=== PATIENT | male | born 1935 | race Caucasian/White ===

== ENCOUNTER 2021-11-20 19:36 | Emergency (ER) | payer OTHER, MEDICARE, SELFPAY ==
--- NOTE | 2021-11-20 19:55 | CTR_ITS ---
PROCEDURE INFORMATION: Exam: CT Head Without Contrast Exam date and time: 11/20/2021 8:04 PM Age: 85 years old Clinical indication: Altered mental status/memory loss; Additional info: AMS TECHNIQUE: Imaging protocol: Computed tomography of the head without contrast. Radiation optimization: All CT scans at this facility use at least one of these dose optimization techniques: automated exposure control; mA and/or kV adjustment per patient size (includes targeted exams where dose is matched to clinical indication); or iterative reconstruction. COMPARISON: No relevant prior studies available. RADIATION DOSE METRICS: Total DLP (mGy-cm): 1056.98 FINDINGS: Brain: No hemorrhage. No edema. Moderate diffuse cerebral atrophy and sequela of chronic small vessel ischemic disease. No mass effect. Cerebral ventricles: No ventriculomegaly. Paranasal sinuses: Visualized sinuses are unremarkable. No fluid levels. Mastoid air cells: Visualized mastoid air cells are well aerated. Bones/joints: Unremarkable. No acute fracture. Soft tissues: Unremarkable. CT/CT head wo con* [id number] IMPRESSION: 1. No acute intracranial abnormality. 2. Moderate diffuse cerebral atrophy and sequela of chronic small vessel ischemic disease.
--- NOTE | 2021-11-20 19:55 | ECG_ITS ---
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 Measurements Intervals [place] Rate: 119 P: [place]: QRS: -40 QRSD: 113 T: 106 QT: 333 QTc: 469 Interpretive Statements ATRIAL FIBRILLATION WITH RAPID VENTRICULAR RESPONSE LEFT AXIS DEVIATION [QRS AXIS < -30] POSSIBLE RIGHT VENTRICULAR CONDUCTION DELAY [RSR (QR) IN V1/V2] MODERATE VOLTAGE CRITERIA FOR LVH, CONSIDER NORMAL VARIANT [MEETS CRITERIA IN ONE OF: R(aVL), S(V1), R(V5), R(V5/V6)+S(V1)] POSSIBLE SEPTAL MYOCARDIAL INFARCTION , OF INDETERMINATE AGE [30 ms Q WAVE IN V1/V2] PROBABLE LATERAL MYOCARDIAL INFARCTION , OF INDETERMINATE AGE [35 ms Q WAVE IN I/aVL/V5/V6] ST DEPRESSION, CONSIDER SUBENDOCARDIAL INJURY [0.1+ mV ST DEPRESSION] No previous ECG available for comparison Electronically Signed On 11-22-2021 23:41:26 CDT by Marv Sanz M.D. [id number]
--- NOTE | 2021-11-20 19:55 | XRR_ITS ---
PROCEDURE INFORMATION: Exam: XR Chest Exam date and time: 11/20/2021 8:33 PM Age: 85 years old Clinical indication: Other: AMS TECHNIQUE: Imaging protocol: Radiologic exam of the chest. Views: 1 view. COMPARISON: No relevant prior studies available. FINDINGS: Tubes, catheters and devices: Loop recorder device noted in the left chest wall. Lungs: Biapical scarring. No consolidation. Pleural spaces: No pleural effusion. No pneumothorax. Heart/Mediastinum: No cardiomegaly. Bones/joints: Visualized osseous structures are intact. XR/XR chest 1V portable [id number] IMPRESSION: No acute findings.
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
[2021-11-20 20:15] LABS: Amphetamines Screen Urine Negative (Negative); Barbiturates Screen Urine Negative (Negative); Benzodiazepines Screen Urine Positive (Negative); Cocaine Screen Urine Negative (Negative); Opiate Screen Urine Negative (Negative); PCP Screen Urine Negative (Negative); THC Screen Urine Positive (Negative)
[2021-11-20 20:19] LABS: Add Urine Microscopic? YES; Bilirubin Urine Neg (Negative); Blood Urine 2+ (Negative); Glucose Urine UA Norm (Normal); Ketones Urine 1+ (Negative); Leukocyte Esterase Urine Negative (Negative); Nitrate Urine Negative (Negative); Protein Urine Trace (Negative); Specific Gravity, Urine 1.015 (1.005-1.030); Urine Appearance Clear (CLEAR); Urine Color Yellow (Yellow); Urobilinogen Urine Norm (Negative); pH Urine 7 (5-7)
[2021-11-20 20:33] LABS: Alveolar-Arterial Oxygen Gradi 1.9 mmHg (5-10); Arterial Blood Gas Hematocrit 37.5 % (42-52); Base Excess ABG -1.2 mmol/L (-2.0-2.0); Blood Gas Allen Test Pos; Blood Gas Sample Site Radial, left; Blood Gas Sample Type Arterial; HCO3 ABG 18.7 mmol/L (22-26); HGB O2 Sat 97.3 % (95-100); Ionized Calcium Level - ABG 1.2 mmol/L (1.1-1.4); Methemoglobin 0.6 % (0.4-1.5); Potassium Level - ABG 3.7 mmol/L (3.5-5.0); Total Hemoglobin 12.2 g/dL (14-18)
[2021-11-20 20:37] LABS: ABG PCO2 19.7 mmHg (35-45); ABG PH Result 7.59 (7.35-7.45)
[2021-11-20 20:37] LABS: Add Urine Culture? No; Bacteria Urine TRACE /hpf; Mucus Urine 1+ /hpf; RBC Urine 0-4 /hpf (0-2); Squamous Epithelial Cell Urine 0-4 /hpf (0-5); WBC Urine 0-4 /hpf (0-5)
[2021-11-20 20:49] LABS: Basophils % 0.3 %; Eosinophils % 0.2 %; Hematocrit 38.4 % (42.0-52.0); Hemoglobin 11.8 g/dL (11.7-16.6); Lymphocytes % 10.7 %; Mean Corpuscular HGB Conc 30.7 g/dL (30.0-36.0); Mean Corpuscular Hemoglobin 27.2 pg (28.0-34.0); Mean Corpuscular Volume 88.5 fl (80-94); Mean Platelet Volume 11.8 fL (7.4-10.4); Monocytes # 0.6 10^3/uL (0.2-0.9); Monocytes % 6.5 %; Neutrophils # 7.95 10^3/uL (1.8-7.7); Neutrophils % 81.8 %; Nucleated Red Blood Cells % 0 %; Platelet Count 203 10^3/cmm (130-400); Red Blood Count 4.34 10^6/uL (4.1-5.3); Red Cell Distribution Width 13.8 % (12.1-15.1); White Blood Count 9.7 10^3/uL (4.0-10.0)
[2021-11-20] MEDS: OLANZapine 5 mg TABLET 2.5 MG PO (20:52)
[2021-11-20 21:08] LABS: Ammonia 34 umol/L (16-60)
[2021-11-20 21:14] LABS: Troponin(5th) Baseline 42 ng/L (0-15)
[2021-11-20 21:21] LABS: Alanine Aminotransferase 31 U/L (0-41); Albumin Level 4.2 g/dL (3.5-5.2); Alkaline Phosphatase 68 IU/L (40-130); Anion Gap 22.6 (5-19); Aspartate Amino Transferase 39 U/L (0-40); Blood Urea Nitrogen 16 mg/dL (8-23); Calcium 9.2 mg/dL (8.5-10.5); Carbon Dioxide 19 mmol/L (22-29); Chloride 101 mmol/L (98-107); Free T4 Free Thyroxine 1.31 ng/dL (0.82-1.77); Globulin 2.9 g/dL (1.3-4.6); Glucose 92 mg/dL (65-115); Lipase 43 U/L (13-60); Osmolality Calculated 289 mOsm/kg (285-295); Potassium 3.6 mmol/L (3.5-5.1); Sodium 139 mmol/L (136-145); Thyroid Stimulating Hormone 2.64 uIU/mL (0.27-4.20); Total Bilirubin 0.9 mg/dL (0.15-1.2); Total Protein 7.1 g/dL (6.6-8.7)
[2021-11-20 21:30] LABS: Acetaminophen < 5.0 ug/mL (10-30); Salicylate < 0.3 mg/dL (3-10)
[2021-11-20 21:44] LABS: SARS Covid-2 Antigen Negative (Negative)
--- NOTE | 2021-11-20 21:55 | ECG_ITS ---
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 Measurements Intervals [place] Rate: 154 P: -87 [place]: 90 QRS: -26 QRSD: 111 T: 102 QT: 304 QTc: 488 Interpretive Statements ATRIAL FIBRILLATION WITH RVR INCOMPLETE RIGHT BUNDLE BRANCH BLOCK [90+ ms QRS DURATION, TERMINAL R IN V1/V2, 40+ ms S IN I/aVL/V4/V5/V6] LEFT VENTRICULAR HYPERTROPHY AND ST-T CHANGE [VOLTAGE CRITERIA PLUS ST/T ABNORMALITY] POSSIBLE ANTEROLATERAL MYOCARDIAL INFARCTION , OF INDETERMINATE AGE [30 ms Q WAVE IN I/aVL/V3-V6] Compared to ECG 11/20/2021 20:18:23 Incomplete right bundle-branch block now present Left-axis deviation no longer present ST (T wave) deviation still present Myocardial infarct finding still present Electronically Signed On 11-22-2021 23:44:43 CDT by Marv Sanz M.D. [id number]
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
[2021-11-21] MEDS: ziprasidone 20 mg/mL SDV IM (00:15)
[2021-11-21] MEDS: midazolam 1 mg/mL INJ 2 mL 2 MG IM (01:06)
[2021-11-21 01:50] VITALS: BP 131/101; PULSE 160; RESP 15; O2SAT 98
[2021-11-21 01:52] VITALS: BP 131/101; PULSE 142; RESP 16; O2SAT 98
[2021-11-21] MEDS: metoprolol tartrate 1 mg/1 mL SDV 5 mL 5 MG IVP (01:56)
[2021-11-21 03:27] VITALS: PULSE 106; RESP 16
[2021-11-21 08:00] VITALS: BP 136/99; PULSE 106; RESP 16; TEMP 36.7; O2SAT 98
[2021-11-21] MEDS: metoprolol tartrate 25 mg Tablet PO ×2 (08:52→21:04)
[2021-11-21] MEDS: aspirin 81 mg EC Tablet PO (08:52)
[2021-11-21] MEDS: apixaban 5 mg Tablet PO ×2 (08:52→21:04)
--- NOTE | 2021-11-21 09:17 | PC.PHAR ---
PTS VERIFIED PTS MEDICATIONS-PTS STATES THE PT HASNT BEEN TAKING DEPAKOTE DR 250MG,MEMANTINE 5MG AND DONEPEZIL 5MG FOR A WHILE STATES THEY WERE DCED-PTS STATES THE PT HAS A RX FOR PLAVIX 75MG DAILY FILLED ON 11/11/21 BUT STATES PT HASNT STARTED TAKING YET STATES THE PT WAS TOLD TO FINISH THE XARELTO FIRST-PTS STATES PT WAS ON REMERON 7.5MG THEN WAS INCREASED TO 15MG STATES IT WAS TOO MUCH FOR THE PT SO SHE TITRATED IT DOWN AND DCED-EXT MED HISTORY SHOWS LAST FILLED 11/05/21 90D/S-NOTES ARE MADE IN THE PHARMACY COMMENTS
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
[2021-11-21] MEDS: OLANZapine 5 mg TABLET PO ×2 (10:23→17:11)
[2021-11-21 11:09] LABS: Troponin T (5th) Once 82 ng/L (0-15)
[2021-11-21 12:00] VITALS: BP 126/74; PULSE 84; TEMP 36.3
--- NOTE | 2021-11-21 12:41 | USCV_ITS ---
Diego Hsieh Age: 85 Gender: M : 1935 Exam Date: 11/21/2021 14:04 Ordering Phys: Facundo John MD Technologist: Dimitry Zhou Exam Location: [facility] [place] Indication: nstemi BP: 124 / 74 HR: 81 Rhythm: Sinus Technical Quality: Adequate MEASUREMENTS (Male / Female) Normal Values 2D ECHO LV Diastolic Diameter PLAX 4.3 cm 4.2 - 5.9 / 3.9 - 5.3 cm LV Systolic Diameter PLAX 3.5 cm IVS Diastolic Thickness 1.2 cm 0.6 - 1.0 / 0.6 - 0.9 cm IVS Systolic Thickness 1.3 cm LVPW Diastolic Thickness 1.2 cm 0.6 - 1.0 / 0.6 - 0.9 cm LVPW Systolic Thickness 1.4 cm LVOT Diameter 1.9 cm LV Ejection Fraction 2D Teich 41.1 % LV Ejection Fraction MOD 2C 57.4 % LV Ejection Fraction 2C AL 57.3 % LA Diameter 3.6 cm Aorta at Sinotubular Diameter 2.9 cm IVC Diameter 1.0 cm M-MODE Aortic Annulus Diameter 3.2 cm LA Ao Ratio MM 1.1 MV E Point Septal Separation 1.5 cm DOPPLER AV Peak Velocity 165.0 cm/s LVOT Peak Velocity 94.0 cm/s AV Area Cont Eq vti 1.8 cm squared AV Area Cont Eq pk 1.7 cm squared MV Area PHT 5.0 cm squared Mitral E to A Ratio 0.6 MV E' Velocity 27.0 cm/s Mitral E to MV E' Ratio 8.5 Mitral E to LV E' Lateral Ratio 9.6 Mitral E to LV E' Septal Ratio 7.7 TR Peak Velocity 187.7 cm/s TR Peak Gradient 14.1 mmHg Right Atrial Pressure 3.0 mmHg Pulmonary Artery Systolic Pressu 17.1 mmHg PV Peak Velocity 72.0 cm/s FINDINGS Left Ventricle Normal left ventricular size. LV systolic function is mildly reduced with EF of 40-45%. Mild global hypokinesis. Grade 1 diastolic dysfunction Right Ventricle The right ventricle is normal in size and function. Right Atrium The right atrium is normal in size. Left Atrium The left atrium is normal in size. Mitral Valve Moderate mitral annular calcification without significant stenosis or prolapse. There is trace mitral regurgitation. Aortic Valve Aortic valve is thickened without significant stenosis. There is no aortic regurgitation. Tricuspid Valve Structurally normal tricuspid valve without significant stenosis. Trace tricuspid regurgitation. Pulmonary artery systolic pressure is normal. Pulmonic Valve Not well visualized Pericardium Normal pericardium without effusion. Aorta Normal ascending aorta dimension. IVC CONCLUSIONS LV systolic function is mildly reduced with EF of 40-45% Grade 1 diastolic dysfunction Moderate mitral annular calcification. Trace mitral regurgitation Trace tricpuspid regurgitation No comparison studies are available Marv Sanz MD (Electronically Signed) Final Date: 22 November 2021 12:48 S
--- NOTE | 2021-11-21 12:42 | ECG_ITS ---
[facility] Test Date: 2021-11-21 Pat Name: Diego Hsieh Department: Room: Gender: Male Planner: : 1935 Requested By: Facundo John Order Number: [id number] Yasmin MD: Marv Sanz M.D. Measurements Intervals [place] Rate: 77 P: 22 NH: 157 QRS: -19 QRSD: 110 T: 243 QT: 440 QTc: 499 Interpretive Statements SINUS RHYTHM INCOMPLETE RIGHT BUNDLE BRANCH BLOCK [90+ ms QRS DURATION, TERMINAL R IN V1/V2, 40+ ms S IN I/aVL/V4/V5/V6] LEFT VENTRICULAR HYPERTROPHY AND ST-T CHANGE [VOLTAGE CRITERIA PLUS ST/T ABNORMALITY] POSSIBLE SEPTAL MYOCARDIAL INFARCTION , PROBABLY OLD [30 ms Q WAVE IN V1/V2] POSSIBLE LATERAL MYOCARDIAL INFARCTION , OF INDETERMINATE AGE [30 ms Q WAVE IN I/aVL/V5/V6] Compared to ECG 11/21/2021 01:42:55 No significant changes Electronically Signed On 11-22-2021 23:38:54 CDT by Marv Sanz M.D. [id number]
[2021-11-21 17:17] VITALS: O2SAT 93
--- NOTE | 2021-11-21 17:17 | PC.NURSE ---
Patient pacing in room and resting throughout shift, family visited earlier in shift for awhile, talked on phone with hospitalist. Patients VSS with regards to patient oxygen saturation low. Did random check and was in low 80's was easily corrected with oxygen placement. Patient confused but following commands and alert. Room remains clean and cleared of all hazards per protocol. Sitter at bedside, no other new events.
--- NOTE | 2021-11-21 18:42 | ECG_ITS ---
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 Measurements Intervals [place] Rate: 124 P: [place]: QRS: -9 QRSD: 114 T: 109 QT: 345 QTc: 496 Interpretive Statements ATRIAL FIBRILLATION WITH RAPID VENTRICULAR RESPONSE INCOMPLETE RIGHT BUNDLE BRANCH BLOCK [90+ ms QRS DURATION, TERMINAL R IN V1/V2, 40+ ms S IN I/aVL/V4/V5/V6] POSSIBLE LEFT VENTRICULAR HYPERTROPHY [VOLTAGE CRITERIA PLUS LAE OR QRS WIDENING] POSSIBLE SEPTAL MYOCARDIAL INFARCTION , OF INDETERMINATE AGE [30 ms Q WAVE IN V1/V2] MODERATE T-WAVE ABNORMALITY, CONSIDER LATERAL ISCHEMIA [-0.1+ mV T-WAVE IN I/aVL/V5/V6] Compared to ECG 11/21/2021 12:47:52 T-wave abnormality now present Possible ischemia now present Sinus rhythm no longer present ST (T wave) deviation no longer present Myocardial infarct finding still present Electronically Signed On 11-22-2021 23:43:46 CDT by Marv Sanz M.D. [email or web address]
--- NOTE | 2021-11-21 19:29 | PC.NURSE ---
EKG done at 1925 and shown to ER doctor
[2021-11-21] MEDS: ALPRAZolam 0.5 mg Tablet PO (21:04)
[2021-11-22] MEDS: acetaminophen 325 mg Tablet 650 MG PO (01:51)
[2021-11-22 05:40] LABS: Basophils % 0.6 %; Eosinophils # 0.1 10^3/uL (0.0-0.8); Hematocrit 35.9 % (42.0-52.0); Hemoglobin 12.1 g/dL (11.7-16.6); Lymphocytes # 1.8 10^3/uL (0.8-4.8); Lymphocytes % 25.4 %; Mean Corpuscular HGB Conc 33.7 g/dL (30.0-36.0); Mean Corpuscular Hemoglobin 27.7 pg (28.0-34.0); Mean Corpuscular Volume 82.2 fl (80-94); Mean Platelet Volume 11.7 fL (7.4-10.4); Monocytes # 0.8 10^3/uL (0.2-0.9); Monocytes % 11.9 %; Neutrophils # 4.29 10^3/uL (1.8-7.7); Neutrophils % 60.8 %; Nucleated Red Blood Cells % 0 %; Platelet Count 212 10^3/cmm (130-400); Red Blood Count 4.37 10^6/uL (4.1-5.3); White Blood Count 7.1 10^3/uL (4.0-10.0)
[2021-11-22 06:00] LABS: Alanine Aminotransferase 36 U/L (0-41); Albumin Level 4.2 g/dL (3.5-5.2); Alkaline Phosphatase 61 IU/L (40-130); Anion Gap 16.2 (5-19); Aspartate Amino Transferase 60 U/L (0-40); Blood Urea Nitrogen 18 mg/dL (8-23); Calcium 9.1 mg/dL (8.5-10.5); Carbon Dioxide 22 mmol/L (22-29); Chloride 103 mmol/L (98-107); Globulin 2.6 g/dL (1.3-4.6); Glucose 82 mg/dL (65-115); Osmolality Calculated 287 mOsm/kg (285-295); Potassium 3.2 mmol/L (3.5-5.1); Sodium 138 mmol/L (136-145); Total Protein 6.8 g/dL (6.6-8.7); Troponin T (5th) Once 73 ng/L (0-15)
[2021-11-22 06:14] VITALS: BP 139/82; PULSE 75; RESP 16; O2SAT 95
[2021-11-22] MEDS: aspirin 81 mg EC Tablet PO (09:29)
[2021-11-22] MEDS: OLANZapine 5 mg TABLET PO ×2 (09:29→20:24)
[2021-11-22] MEDS: ascorbic acid 500 mg Tablet 1000 MG PO (09:29)
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
[2021-11-22 11:47] VITALS: BP 121/61; PULSE 103; RESP 17; TEMP 36.4; O2SAT 96
--- NOTE | 2021-11-22 18:40 | PC.NURSE ---
Talat Bales from [facility]: Dr. Clemens is ordering medications for this patient. Zyprexa, Xanax, and Fentanyl patches, for his to picker packer from the pharmacy in the morning. Once she picks up the Rx, she will notify [facility], who will then notify the ER and he will be discharged home in her care. Dr. John and Dr. Banks notified and both agree with this plan.
[2021-11-22 19:05] VITALS: BP 109/60; PULSE 106; RESP 18; TEMP 36.3; O2SAT 98
[2021-11-22 20:00] VITALS: BP 116/66; PULSE 57; TEMP 36.7; O2SAT 97
[2021-11-22] MEDS: acetaminophen 500 mg Tablet PO (20:24)
[2021-11-22] MEDS: ALPRAZolam 0.5 mg Tablet PO (20:26)
[2021-11-22] MEDS: apixaban 5 mg Tablet PO (21:26)
[2021-11-23] VITALS: RESP 18
[2021-11-23 04:00] VITALS: BP 125/86; PULSE 91; RESP 17; TEMP 36.6; O2SAT 95
[2021-11-23] MEDS: acetaminophen 325 mg Tablet 650 MG PO (04:16)
[2021-11-23 05:58] VITALS: BP 151/78; PULSE 96; RESP 16; TEMP 36.4; O2SAT 96
[2021-11-23 06:03] LABS: Basophils % 0.5 %; Eosinophils # 0.1 10^3/uL (0.0-0.8); Eosinophils % 1.4 %; Hematocrit 33.9 % (42.0-52.0); Hemoglobin 11.1 g/dL (11.7-16.6); Lymphocytes # 1.5 10^3/uL (0.8-4.8); Lymphocytes % 23.5 %; Mean Corpuscular HGB Conc 32.7 g/dL (30.0-36.0); Mean Corpuscular Hemoglobin 27.6 pg (28.0-34.0); Mean Corpuscular Volume 84.3 fl (80-94); Mean Platelet Volume 11.4 fL (7.4-10.4); Monocytes # 0.6 10^3/uL (0.2-0.9); Monocytes % 10.2 %; Neutrophils # 4.02 10^3/uL (1.8-7.7); Neutrophils % 64.2 %; Nucleated Red Blood Cells % 0 %; Platelet Count 199 10^3/cmm (130-400); Red Blood Count 4.02 10^6/uL (4.1-5.3); Red Cell Distribution Width 14.1 % (12.1-15.1); White Blood Count 6.3 10^3/uL (4.0-10.0)
[2021-11-23 06:20] LABS: Alanine Aminotransferase 32 U/L (0-41); Alkaline Phosphatase 52 IU/L (40-130); Anion Gap 15.9 (5-19); Aspartate Amino Transferase 42 U/L (0-40); Blood Urea Nitrogen 26 mg/dL (8-23); Calcium 9.2 mg/dL (8.5-10.5); Carbon Dioxide 23 mmol/L (22-29); Chloride 106 mmol/L (98-107); Glucose 91 mg/dL (65-115); Osmolality Calculated 296 mOsm/kg (285-295); Potassium 3.9 mmol/L (3.5-5.1); Sodium 141 mmol/L (136-145); Total Bilirubin 0.7 mg/dL (0.15-1.2)
[2021-11-23 08:00] VITALS: BP 161/85; PULSE 102; O2SAT 97
[2021-11-23] MEDS: aspirin 81 mg EC Tablet PO (09:18)
[2021-11-23] MEDS: ascorbic acid 500 mg Tablet 1000 MG PO (09:18)
[2021-11-23] MEDS: metoprolol tartrate 25 mg Tablet PO (09:18)
[2021-11-23] MEDS: OLANZapine 5 mg TABLET PO (09:18)
[2021-11-23] MEDS: apixaban 5 mg Tablet PO (09:18)
[2021-11-23 12:00] VITALS: BP 135/82; PULSE 101; O2SAT 97
[2021-11-23 12:37] VITALS: BP 135/82; PULSE 101; O2SAT 97
== END 2021-11-23 12:32 | disposition admitted as inpatient to this hospital (09) ==
PROVIDERS: Family Medicine; Internal Medicine; Emergency Provider Emergency Medicine
DX: R45.6 Violent behavior (principal); R41.82 Altered mental status, unspecified; F22 Delusional disorders; F03.90 Unspecified dementia, unspecified severity, without behavioral disturbance, psychotic disturbance, mood disturbance, and anxiety; F12.90 Cannabis use, unspecified, uncomplicated; R77.8 Other specified abnormalities of plasma proteins; I25.10 Atherosclerotic heart disease of native coronary artery without angina pectoris; I48.91 Unspecified atrial fibrillation
CPT/HCPCS: 36415; 36600; 70450; 71045; 80051; 80053; 80306; 80307; 81001; 82140; 82330; 82805; 83690; 83735; 84439; 84443; 84484; 85025; 87426; 93005; 93306; 96372; 96374; 99285; J2250; J3486; J3490